=== PATIENT | female | born 1985 | race Caucasian/White ===

== ENCOUNTER 2018-06-19 10:37 | Emergency (ER) | payer SELFPAY ==
[~2018-06-19] VITALS: Ht 134.6 cm; Wt 51.8 kg
[~2018-06-19 10:37] MED LIST: KEP500 PO
[2018-06-19 11:12] VITALS: Ht 134.6 cm; Wt 51.8 kg
[2018-06-19 12:56] LABS: UA SPECIFIC GRAVITY 1.025 (1.005-1.035); microscopic required? YES; urine erythrocyte TRACE (NEGATIVE)
[2018-06-19 15:29] VITALS: BP 95/59
== END 2018-06-19 15:29 | disposition home or self-care (01) ==
LOC: ED 10:37
PROVIDERS: Emergency Medicine
DX: G43.909 Migraine, unspecified, not intractable, without status migrainosus (principal); N39.0 Urinary tract infection, site not specified
CPT/HCPCS: J0696; J1200; J2765; J7030